=== PATIENT | male | born 1975 | race Caucasian/White ===

== ENCOUNTER 2024-06-24 10:22 | Emergency (ER) | payer SELFPAY ==
[2024-06-24] VITALS (8 sets, daily range): BP systolic 108–132; BP diastolic 67–96; PULSE 72–88; RESP 14–21; TEMP 36.9; O2SAT 96–99; BMI 34.7
--- NOTE | 2024-06-24 10:13 | ECG_ITS ---
APPROVED REPORT Exam: Resting ECG HR:76 bpm ECG Measurements Heart Rate 76 AXES LA 146 P 51 QRSd 96 QRS 6 QT 380 T 72 QTc 411 Conclusion SINUS RHYTHM NONSPECIFIC ST & T-WAVE ABNORMALITY No STEMI Electronically signed by : COREY MCDONOUGH, 06/25/2024 03:58:41
--- NOTE | 2024-06-24 10:34 | XR_ITS ---
PROCEDURE INFORMATION: Exam: XR Chest Exam date and time: 06/24/2024 10:32 AM Age: 49 years old Clinical indication: Pain; Other: Cp; Additional info: Cp sternal TECHNIQUE: Imaging protocol: Radiologic exam of the chest. Views: 2 views. COMPARISON: No relevant prior studies available. FINDINGS: Lungs: Unremarkable. No consolidation. Pleural spaces: Unremarkable. No pleural effusion. No pneumothorax. Heart/Mediastinum: Unremarkable. No cardiomegaly. Bones/joints: Unremarkable. IMPRESSION: No acute findings.
--- NOTE | 2024-06-24 10:36 | ED_ITS ---
Discharge Plan Disposition Chief Complaint: Chest Pain Referrals Follow up/Referrals: Provider,MD Kassy [Primary Care Provider] - See instructions Umair Sanford MD [Staff Physician] - See instructions Activity Restrictions/Add. Instructions Additional Instructions/Restrictions: At this time it was felt you are safe to be discharged home. If new or worsening symptoms please do not hesitate to return the emergency department. It may be worthwhile for you to get omeprazole [id number] and take it as the package directs for 1 week to see if it modifies your chest pain. Otherwise call and schedule an appointment with Dr. Sanford for continued evaluation as soon as you are able. Clinical Impressions Clinical Impression: Chest pain Print Language Print Language: Haitian Discharge ED Provider: Jourdan Luz General Chief Complaint: Chest Pain Stated Complaint: CP Time Seen by Provider: 06/24/24 10:26 Mode of Arrival: Ambulatory Source of Information: Patient and Spouse Description of Symptoms (Recalled from ER Triage Doc. by RN): pt has been having mid sternal chest spasms for 2 weeks now non radiating, nothing seems to make it better or worse however patient notes maybe tums did help, pt denies any dizziness/ nausea/ syncope/ soa. pt states any kind of mvmt tends to aggravate it but. pt takes no meds and has no pcp History of Present Illness HPI narrative: Patient is a 49-year-old male with no chronic comorbidities presents emergency department for evaluation of chest pain. Onset was subacute, 2 weeks, substernal, paroxysmal, intermittent. There is not seem to be any inciting factors however he did not have any symptoms yesterday and had taken Tums. No trauma. It is worse with cough, sneeze. No abdominal pain. No other acute complaints at this time. Please note that above description of symptoms, in this electronic medical record under categorization of recalled from ER triage doctor by RN are reflective of an initial nursing assessment, however, is not reflective of my full history and physical exam that was personally taken and clarified. Consequentially, this preceding description of symptoms, which may include the patient's categorized chief complaint in the EMR, do not reflect my personal clinical impression, and the ultimate description of history of present illness and patient stated complaints should be deferred to this section of the note. Unless stated otherwise or congruent with this section of the note, additional signs, symptoms, or incongruence should be interpreted as inaccurate with my clinical impression. Related Data Allergies Allergy/AdvReac Type Severity Reaction Status Date / Time No Known Allergies Allergy Verified 06/24/24 10:34 [facility] Disclaimer: The information contained in this section may have been updated after the patient was seen, as this information can be updated by other users. Social History Smoking Status: Never smoker alcohol intake: never current occupational status: other Travel in the last 8 weeks: None ROS Obtained: Yes Systems reviewed as appropriate & no additional complaints except as documented Physical Exam General General appearance: alert and in no apparent distress Head Head exam: atraumatic and normocephalic Eye Eye exam: Present PERRL and EOMI ENT ENT exam: Present mucous membranes moist Neck Neck exam: Present normal inspection Chest Chest inspection: Present normal inspection and symmetric chest wall rise; Absent tenderness Respiratory Respiratory exam: Present normal lung sounds bilaterally; Absent respiratory distress Cardiovascular Cardiovascular exam: Present regular rate and normal rhythm Abdominal Exam Abdominal exam: Present soft; Absent tenderness Extremities Exam Extremities exam: Present normal inspection Neurological Exam Neurological exam: Present alert Psychiatric Psychiatric exam: Present normal affect Skin Skin exam: Present warm and dry HEART Score HEART Score HEART Score assessment performed?: Yes History (anamnesis): Slightly suspicious ECG: Non-specific disturbance Age: 45-65 years Risk factors: No known risk factors Troponin: </= normal limit HEART Score: 2 Critical Care Critical Care Time Critical Care Time: No Medical Decision Making Fito Inquiry Pt receiving controlled substance: No Vital Signs Vital Signs: 06/24/24 10:27 06/24/24 10:33 06/24/24 11:16 Temperature 98.5 F Temperature Source Oral Pulse Rate 80 88 Pulse Rate [Left Radial] 77 Respiratory Rate 20 17 Blood Pressure 131/96 H Blood Pressure [Right Arm] 132/96 H Blood Pressure Mean [Right Arm] 108 02 Sat by Pulse Oximetry 99 98 Oxygen Delivery Method Room Air 06/24/24 11:30 06/24/24 12:00 06/24/24 12:30 Temperature Temperature Source Pulse Rate 80 76 87 Pulse Rate [Left Radial] Respiratory Rate 19 14 21 Blood Pressure 113/67 115/74 108/72 L Blood Pressure [Right Arm] Blood Pressure Mean [Right Arm] 02 Sat by Pulse Oximetry 98 96 97 Oxygen Delivery Method Room Air Room Air Room Air 06/24/24 13:00 Temperature Temperature Source Pulse Rate 72 Pulse Rate [Left Radial] Respiratory Rate 17 Blood Pressure 111/73 Blood Pressure [Right Arm] Blood Pressure Mean [Right Arm] 02 Sat by Pulse Oximetry 97 Oxygen Delivery Method Room Air Lab Data Labs: Lab Results 06/24/24 10:24: WBC 11.7 H, RBC 5.18, Hgb 15.7, Hct 46.0, MCV 88.8, MCH 30.3, MCHC 34.1, RDW 12.4, Plt Count 251, MPV 10.7 H, Neut % (Auto) 67.5, Lymph % (Auto) 23.1, [place] % (Auto) 7.1, Eos % (Auto) 1.4, Baso % (Auto) 0.6, Neut # (Auto) 7.9 H, Lymph # (Auto) 2.7, [place] # (Auto) 0.8, Eos # (Auto) 0.2, Baso # (Auto) 0.1, D-Dimer 0.36, Sodium 139, Potassium 4.5, Chloride 103, Carbon Dioxide 26, Anion Gap 14.5, BUN 19, Creatinine 1.10, Estimated Creat Clear 152, Estimated GFR 72, Est GFR ( Amer) 87, Glucose 105 H, Calcium 9.0, Total Bilirubin 0.7, AST 32, ALT 46, Alkaline Phosphatase 100, Troponin I < 0.01, Total Protein 7.6, Albumin 4.5, Globulin 3.1, Albumin/Globulin Ratio 1.5 06/24/24 12:23: Troponin I < 0.01, Lipase 39 06/24/24 10:24 06/24/24 10:24 Response Orders (Tests/Meds): ED MEDICATIONS Discontinued Medications Generic Name Dose Route Start Last Admin Trade Name Shahramq PRN Reason Stop Dose Admin Acetaminophen 1,000 mg 06/24/24 10:34 06/24/24 10:44 Acetaminophen 500mg Tab PO 06/24/24 10:35 1,000 mg ONCE ONE Administration Aspirin 324 mg 06/24/24 10:34 06/24/24 10:44 Aspirin 81mg Chewable Tablet PO 06/24/24 10:35 324 mg ONCE ONE Administration Belladonna Alkaloids 60 ml 06/24/24 10:34 06/24/24 10:44 Belladonna Alkaloids 60 Ml Ml PO 06/24/24 10:35 60 ml ONCE ONE Administration Methocarbamol 1,000 mg 06/24/24 10:34 06/24/24 10:43 Methocarbamol 500mg Tablet PO 06/24/24 10:35 1,000 mg ONCE ONE Administration ORDERS Category Date Time Status CXR 2 view (NOT portable) [XR chest 2V] Stat Exams 06/24/24 10:34 Completed CBC w/Auto Diff [Complete Blood Count Auto Diff] Stat Lab 06/24/24 10:24 Completed CMP [Comprehensive Metabolic Panel] Stat Lab 06/24/24 10:24 Completed D-Dimer Stat Lab 06/24/24 10:24 Completed Lipase Stat Lab 06/24/24 12:23 Completed Trop I [Troponin I] Stat Lab 06/24/24 10:24 Completed Troponin I Q3H Lab 06/24/24 12:23 Completed Troponin I Q3H Lab 06/24/24 16:45 Ordered ECG Data Tracing #1: ECG Narrative: Independently interpreted by me rate 76, rhythm is regular, axis is normal, no ST elevation in anatomical contiguous leads, QTc 411. MDM Narrative Medical Decision Narrative: In summary patient is a 49-year-old male past medical history described above presents emergency department for evaluation of chest pain. Patient is hemodynamically stable nontoxic-appearing upon arrival, afebrile. Differential diagnosis includes ACS, GERD, costochondritis, pulmonary embolism, among others. Workup will be conducted with hematologic labs, two-view chest x-ray, EKG, serial troponins. Initial inventions include aspirin, multimodal pain control. Initial workup reviewed by me, hematologic labs are nonactionable no significant leukocytosis no anemia no EWELINA or critical electrolyte abnormality. Initial troponin undetectably low. The patient was placed in observation status at 11:30 AM. Medical necessity for observational status is serial troponins. The patient was provided serial reevaluations and cardiac monitoring while awaiting results. Results of testing during observation remarkable for serially undetectably low troponins. Chest x-ray informally interpreted by me no acute large lobar opacities or pneumothorax. Formal read shows no acute findings. Because of this I feel the patient is appropriate for outpatient management at this time will be referred to Dr. Sanford for continued evaluation. Total time in observation 1 hour and 48 minutes.
[2024-06-24 10:41] LABS: Basophils # 0.1 K/mm3 (0-0.2); Basophils % 0.6 % (0.1-2.0); Eosinophils # 0.2 K/mm3 (0.0-0.4); Eosinophils % 1.4 % (0.1-12.0); Hemoglobin 15.7 g/dL (14.1-18.0); Lymphocytes # 2.7 K/mm3 (0.7-4.5); Lymphocytes % 23.1 % (10-50); Mean Corpuscular HGB Conc 34.1 g/dL (31.8-35.4); Mean Corpuscular Hemoglobin 30.3 pg (27.0-31.2); Mean Corpuscular Volume 88.8 fl (80-94); Mean Platelet Volume 10.7 fl (7.4-10.4); Monocytes # 0.8 K/mm3 (0.1-1.0); Monocytes % 7.1 % (1.7-9.3); Neutrophils # 7.9 K/mm3 (1.8-7.8); Neutrophils % 67.5 % (37.0-80.0); Platelet Count 251 K/mm3 (142-424); Red Blood Count 5.18 M/mm3 (4.60-6.20); Red Cell Distribution Width 12.4 % (11.5-17.5); White Blood Count 11.7 K/mm3 (4.8-10.8)
[2024-06-24] MEDS: METHOCARBAMOL 500MG TABLET 1000 MG PO (10:43)
[2024-06-24] MEDS: BELLADONNA ALKALOIDS 60 ML ML PO (10:44)
[2024-06-24] MEDS: ASPIRIN 81MG CHEWABLE TABLET 324 MG PO (10:44)
[2024-06-24] MEDS: ACETAMINOPHEN 500MG TAB 1000 MG PO (10:44)
[2024-06-24 10:48] LABS: Alanine Aminotransferase 46 U/L (12-78); Albumin Level 4.5 g/dl (3.5-5.0); Albumin/Globulin Ratio 1.5 (1.1-1.8); Alkaline Phosphatase 100 U/L (38-126); Anion Gap 14.5 mEq/L (5-15); Aspartate Amino Transferase 32 U/L (17-59); Bilirubin,Total 0.7 mg/dl (0.2-1.3); Blood Urea Nitrogen 19 mg/dl (9-20); Carbon Dioxide 26 mmol/L (22.0-30.0); Chloride 103 mmol/L (98-107); Creatinine Clearance Estimated 152 mL/min (50-200); Estimated Glomerular Filt Rate 72 ml/min (>60); GFR (African American) 87 ML/MIN (>60); Globulin 3.1 g/dL (1.3-3.2); Glucose 105 mg/dl (74-100); Potassium 4.5 mmoL/L (3.5-5.1); Sodium 139 mmol/L (136-145); Total Protein,Serum 7.6 g/dl (6.3-8.2)
[2024-06-24 10:53] LABS: D-Dimer 0.36 ug/mL (0.0-0.5)
[2024-06-24 11:02] LABS: Troponin I < 0.01 ng/ml (0.00-0.034)
[2024-06-24 12:59] LABS: Troponin I < 0.01 ng/ml (0.00-0.034)
[2024-06-24 13:14] LABS: Lipase 39 U/L (23-300)
== END 2024-06-24 13:27 | disposition home or self-care (01) ==
PROVIDERS: Emergency Provider Emergency Medicine
DX: R07.9 Chest pain, unspecified (principal)
CPT/HCPCS: 71046; 80053; 83690; 84484; 85025; 85378; 93005; 99284

== ENCOUNTER 2024-07-12 09:48 | Emergency (ER) | payer SELFPAY ==
--- NOTE | 2024-07-12 09:51 | ECG_ITS ---
APPROVED REPORT Exam: Resting ECG HR:77 bpm ECG Measurements Heart Rate 77 AXES KS 134 P 60 QRSd 104 QRS 7 QT 387 T 31 QTc 418 Conclusion Sinus rhythm, sinus arrhythmia Electronically signed by : CALVIN TELLO, 07/12/2024 15:30:02
--- NOTE | 2024-07-12 09:55 | XR_ITS ---
FINAL REPORT CLINICAL HISTORY: chest pain, SOA COMPARISON: None FINDINGS: PA and lateral views of the chest are obtained. There is no prior exam for comparison. The cardiac and mediastinal silhouettes are within normal limits. The lungs are clear. There is no pleural effusion, pneumothorax, or acute osseous abnormality. IMPRESSION: No radiographic evidence of acute cardiac or pulmonary disease. Reviewed, Interpreted and Dictated by Tonya Cruz MD Transcribed by Miladis Ellis Authenticated and [facility]
[2024-07-12 10:00] VITALS: BP 130/87
--- NOTE | 2024-07-12 10:09 | ED_ITS ---
Discharge Plan Disposition Patient Disposition: Home, Self-Care Chief Complaint: Chest Pain Referrals Follow up/Referrals: Provider,Referral, MD [Primary Care Provider] - See instructions Activity Restrictions/Add. Instructions Additional Instructions/Restrictions: Follow-up with your family doctor regarding this visit to the emergency department with 48 hours to establish care for this visit. Take Tylenol 1000 mg every 6 hours (4 times daily) and ibuprofen 400 mg every 6 hours (4 times daily) as needed with food and water to prevent GI upset and kidney damage. Clinical Impressions Clinical Impression: Chest pain Print Language Print Language: South African Discharge ED Provider: Calos Kent HPI General Chief Complaint: Chest Pain Stated Complaint: Chest Pain Time Seen by Provider: 07/12/24 10:00 History of Present Illness HPI narrative: Please note that above description of symptoms, in this electronic medical record under categorization of recalled from ER triage doctor by RN are reflective of an initial nursing assessment, however, is not reflective of my full history and physical exam that was personally taken and clarified. Consequentially, this preceding description of symptoms, which may include the patient's categorized chief complaint in the EMR, do not reflect my personal clinical impression, and the ultimate description of history of present illness and patient stated complaints should be deferred to this section of the note. Unless stated otherwise or congruent with this section of the note, additional signs, symptoms, or incongruence should be interpreted as inaccurate with my clinical impression. Related Data Allergies Allergy/AdvReac Type Severity Reaction Status Date / Time No Known Allergies Allergy Verified 06/24/24 10:34 [facility] Disclaimer: The information contained in this section may have been updated after the patient was seen, as this information can be updated by other users. Social History (Updated 06/24/24 @ 13:19 by Jourdan Luz MD) Smoking Status: Never smoker alcohol intake: never current occupational status: other Travel in the last 8 weeks: None Have you lived/traveled outside [place] in past 30 days?: No Contact w/someone who lives/traveled outside US past 30 days?: No Exposure to someone with infectious disease in past 14 days?: No Do you have a fever (greater than 100.4 F or 38 C)?: No Have you tested positive for COVID-19: No Exposed to someone with COVID-19 in past 14 days?: No Do you have a sore throat?: No Do you have a cough?: No Do you have any weakness?: No Do you have any diarrhea?: No Are you experiencing any unusual bleeding?: No Do you have any muscle aches/pain?: No Do you have any abdominal pain?: No Are you experiencing loss of taste or smell?: No ROS Obtained: Yes All systems reviewed & no additional complaints except as documented Physical Exam General General appearance: alert Neck Neck exam: Present trachea midline Chest Chest inspection: Present normal inspection and symmetric chest wall rise Respiratory Respiratory exam: Present normal lung sounds bilaterally; Absent respiratory distress, wheezes, stridor, accessory muscle use or prolonged expiratory phase Cardiovascular Cardiovascular exam: Present regular rate, normal rhythm and other (Pulses equal and symmetric in upper and lower extremities) Extremities Exam Extremities exam: Absent edema Neurological Exam Neurological exam: Present alert, oriented X3 and CN II-XII intact Skin Skin exam: Present warm and dry; Absent cyanosis, diaphoresis or pallor HEART Score HEART Score HEART Score assessment performed?: Yes HEART Score: 1 Critical Care Critical Care Time Critical Care Time: No Medical Decision Making Medical Records Medical records reviewed: Yes I reviewed the patient's medical records. Fito Inquiry Pt receiving controlled substance: No Fito was queried for this patient: No Vital Signs Vital Signs: 07/12/24 10:00 07/12/24 10:12 07/12/24 10:30 Temperature 97.8 F Temperature Source Oral Pulse Rate 85 Pulse Rate [Right] 79 Respiratory Rate 18 12 Blood Pressure 130/87 133/95 H Blood Pressure [Right Arm] 137/80 Blood Pressure Mean 101 Blood Pressure Mean [Right Arm] 99 Blood Pressure Source [Right Arm] Automatic Cuff 02 Sat by Pulse Oximetry 99 94 L Oxygen Delivery Method Room Air 07/12/24 11:01 07/12/24 11:31 Temperature Temperature Source Pulse Rate 84 85 Pulse Rate [Right] Respiratory Rate 21 19 Blood Pressure 145/116 H 121/89 Blood Pressure [Right Arm] Blood Pressure Mean Blood Pressure Mean [Right Arm] Blood Pressure Source [Right Arm] 02 Sat by Pulse Oximetry 95 93 L Oxygen Delivery Method Lab Data Labs: Lab Results 07/12/24 10:05: WBC 11.8 H, RBC 5.20, Hgb 15.8, Hct 45.8, MCV 88.1, MCH 30.4, MCHC 34.5, RDW 12.6, Plt Count 236, MPV 10.7 H, Neut % (Auto) 69.4, Lymph % (Auto) 21.8, [place] % (Auto) 5.9, Eos % (Auto) 1.9, Baso % (Auto) 0.7, Neut # (Auto) 8.2 H, Lymph # (Auto) 2.6, [place] # (Auto) 0.7, Eos # (Auto) 0.2, Baso # (Auto) 0.1, Sodium 139, Potassium 4.4, Chloride 103, Carbon Dioxide 28, Anion Gap 12.4, BUN 17, Creatinine 1.00, Estimated GFR 80, Est GFR ( Amer) 97, Glucose 113 H, Calcium 9.5, Total Bilirubin 0.7, AST 38, ALT 53, Alkaline Phosphatase 90, Troponin I < 0.01, NT-Pro-B Natriuret Pep < 20.0, Total Protein 7.3, Albumin 4.4, Globulin 2.9, Albumin/Globulin Ratio 1.5, Lipase 43 07/12/24 10:05 07/12/24 10:05 Response Orders (Tests/Meds): ED MEDICATIONS Discontinued Medications Generic Name Dose Route Start Last Admin Trade Name Freq PRN Reason Stop Dose Admin Ketorolac Tromethamine 15 mg 07/12/24 10:27 07/12/24 10:44 Ketorolac 30mg/Ml Vial IV 07/12/24 10:28 15 mg ONCE ONE Administration Lidocaine 1 each 07/12/24 10:27 07/12/24 10:44 Lidocaine 5% Transdermal Patch TD 07/12/24 10:28 1 each ONCE ONE Administration ORDERS Category Date Time Status CXR 2 view (NOT portable) [XR chest 2V] Stat Exams 07/12/24 09:55 Completed Complete Blood Count Auto Diff Stat Lab 07/12/24 10:05 Completed Comprehensive Metabolic Panel Stat Lab 07/12/24 10:05 Completed Lipase Stat Lab 07/12/24 10:05 Completed NT Pro Brain Natriuretic Pep. Stat Lab 07/12/24 10:05 Completed Troponin I Q3H Lab 07/12/24 10:05 Completed Troponin I Q3H Lab 07/12/24 13:00 Ordered MDM Narrative Medical Decision Narrative: This a 49-year-old male presenting with a month of chest pain. He states that he was seen a couple of weeks ago, workup was negative. States that it is point tenderness just left of sternum when he feels like he can push on it. Application of pressure does not make it any better or worse, it is made worse by coughing and sneezing and twisting. Not exertional, nonpositional. Antacid medication did not work, so came in for further evaluation because he feels he should be healed by now. History was obtained via conversation with patient and chart review. On arrival, patient hemodynamically stable, alert, oriented x4, appropriate, GCS 15, moving all extremities spontaneously, pupils equal and reactive to light. Full physical exam performed and significant for well- appearing male no acute distress. Very clinically well. Hemodynamically stable, afebrile, normotensive and nontachycardic. Lungs are clear anterior and posteriorly, cardiac exam without murmurs gallops or rubs, pulses equal symmetric in upper and lower extremities. Application of pressure without worsening of pain, but states that the point tenderness is just immediately adjacent to her sternum on the left and he is able to feel pressure, there when applying direct pressure with finger. Differential includes costochondritis, less likely be ACS, ME, pericarditis, pneumothorax, pneumonia, PE, among others. Patient was given Toradol and lidocaine patch for symptomatic management and correction of underlying abnormalities. Patient placed on continuous cardiac monitoring and continuous pulse ox with initial blood pressure 130/87, heart rate 79, saturation 93% on room air. Independent interpretation of EKG shows sinus rhythm 77 bpm with NM 134, QRS 104, QTc 418. No acute ischemic change. Workup independently interpreted and significant for nonactionable CBC or chemistry, troponin and BNP negative. Lipase negative.. On independent interpretation of imaging, no acute cardiopulmonary space disease on chest x-ray. See radiology read for full review of final results. Heart score 1. On reevaluation, patient feeling much better. Given patient presentation, workup, history, this most likely represents costochondritis. Because patient at baseline without signs or symptoms of clinical decompensation, deemed appropriate for discharge. Results were relayed to patient who voiced understanding and were agreeable to outpatient management and follow up. I discussed my clinical impression with patient and answered all questions. At this time, the evidence for any other entities in the differential is insufficient to warrant any further testing or ED observation. This was explained as well. Advisory was given that persistent or worsening symptoms require further evaluation. I confirmed the understanding of this discussion. Recommended he follow-up with his family doctor. Midwife Practitioner disclaimer Much of this encounter note is an electronic organic chemistry teacher spoken language to printed text. Electronic organic chemistry teacher of the spoken language may permit errors. Although I have reviewed the note, some errors may still exist.
[2024-07-12 10:12] VITALS: BP 137/80; PULSE 79; RESP 18; TEMP 36.6; O2SAT 99; BMI 34.0
[2024-07-12 10:16] LABS: Basophils # 0.1 K/mm3 (0-0.2); Basophils % 0.7 % (0.1-2.0); Eosinophils # 0.2 Kmm3 (0.0-0.4); Eosinophils % 1.9 % (0.1-12.0); Hematocrit 45.8 % (42.0-52.0); Hemoglobin 15.8 g/dL (14.1-18.0); Lymphocytes # 2.6 K/mm3 (0.7-4.5); Lymphocytes % 21.8 % (10-50); Mean Corpuscular HGB Conc 34.5 g/dL (31.8-35.4); Mean Corpuscular Hemoglobin 30.4 pg (27.0-31.2); Mean Corpuscular Volume 88.1 fl (80-94); Mean Platelet Volume 10.7 fl (7.4-10.4); Monocytes # 0.7 K/mm3 (0.1-1.0); Monocytes % 5.9 % (1.7-9.3); Neutrophils # 8.2 K/mm3 (1.8-7.8); Neutrophils % 69.4 % (37.0-80.0); Nucleated Red Blood Cells # 0 10^3/uL; Nucleated Red Blood Cells % 0 %; Platelet Count 236 K/mm3 (142-424); Red Cell Distribution Width 12.6 % (11.5-17.5); Red Cell Distribution Width-SD 40.4 fL; White Blood Count 11.8 K/mm3 (4.8-10.8)
[2024-07-12 10:26] LABS: Alanine Aminotransferase 53 U/L (12-78); Albumin Level 4.4 g/dl (3.5-5.0); Albumin/Globulin Ratio 1.5 (1.1-1.8); Alkaline Phosphatase 90 U/L (38-126); Anion Gap 12.4 mEq/L (5-15); Aspartate Amino Transferase 38 U/L (17-59); Bilirubin,Total 0.7 mg/dl (0.2-1.3); Blood Urea Nitrogen 17 mg/dl (9-20); Calcium 9.5 mg/dl (8.4-10.2); Carbon Dioxide 28 mmol/L (22.0-30.0); Chloride 103 mmol/L (98-107); Estimated Glomerular Filt Rate 80 ml/min (>60); GFR (African American) 97 ML/MIN (>60); Globulin 2.9 g/dL (1.3-3.2); Glucose 113 mg/dl (74-100); Lipase 43 U/L (23-300); Potassium 4.4 mmoL/L (3.5-5.1); Sodium 139 mmol/L (136-145); Total Protein,Serum 7.3 g/dl (6.3-8.2)
[2024-07-12 10:30] VITALS: BP 133/95; PULSE 85; RESP 12; O2SAT 94
[2024-07-12 10:38] LABS: NT Pro Brain Natriuretic Pep. < 20.0 pg/mL (0-125)
[2024-07-12 10:39] LABS: Troponin I < 0.01 ng/ml (0.00-0.034)
[2024-07-12] MEDS: LIDOCAINE 5% TRANSDERMAL PATCH 1 EACH TD (10:44)
[2024-07-12] MEDS: KETOROLAC 30MG/ML VIAL 15 MG IV (10:44)
[2024-07-12 11:01] VITALS: BP 145/116; PULSE 84; RESP 21; O2SAT 95
[2024-07-12 11:31] VITALS: BP 121/89; PULSE 85; RESP 19; O2SAT 93
--- NOTE | 2024-07-12 12:24 | PC.NURSE ---
Dr Kent at bedside
[2024-07-12 12:25] VITALS: BP 114/84; PULSE 77; RESP 16; TEMP 36.7; O2SAT 98
== END 2024-07-12 12:34 | disposition home or self-care (01) ==
PROVIDERS: Emergency Provider Emergency Medicine
DX: R07.89 Other chest pain (principal)
CPT/HCPCS: 71046; 80053; 83690; 83880; 84484; 85025; 93005; 96374; 99284; J1885

== ENCOUNTER 2024-09-23 10:36 | Emergency (ER) | payer SELFPAY ==
--- OUTSIDE RECORDS SUMMARY | 2024-08-27 11:45 | XMS_ITS | Continuity of Care Document ---
Author Organization [facility] Address [address] [place] [address] Phone Care Team Providers Care Application Support Manager Name Role Phone Rene MSN, [employer]ER, Sheila Unavailable Unavai lable Allergies, Adverse Reactions, Alerts Substance Reaction Status Criticality No Known Allergies Active No Inform ation Medications Medication Instructions Dosage Effective Dates (start - stop) Status Comments nitrofurantoin monohydrate/macrocrysta ls 100 mg capsule take 1 capsule by oral route every 12 hours with food 100 MG - Active Vitamin D3 25 mcg (1,000 unit) capsule - Active Procedures Procedure Date OFFICE/OUTPATIENT VISIT, EST OFFICE/OUTPATIENT VISIT, EST Advance Directives Directive Yes / No Effective Date File Name No Information Encounters Encounter Description Practice Location Reason(s) For Visit Diagnoses Date Provider OFFICE/OUTPAT IENT VISIT, [facility], [address] [place] [address], [facility], tel:[phone] [facility] [place] f/u labs (chief complaint)t elehealth (chief complaint) DysuriaHyperlipidemia, unspecifiedPrediabetes 5 Rene Sosa. [address], [place], [id number] , [place]. tel:[phone] [facility], [facility] [place], [place], [facility], [place] tel:[phone] [facility] [place] Depression screening (chief complaint)P rapare (chief complaint)E stablish Care (chief complaint) Extreme povertyEncounter for screening for depressionEncounter for screening for diseases of the blood and blood-forming organs and certain disorders involving the immune mechanismEncounter for screening for other disorderBody mass index [BMI] 36.0-36.9, adultElevated BP reading w/o diagnosis of HTNUnspecified injury of lower back, initial encounter Rene Sosa. [address] [place], [id number] , . tel:[phone] Family History Family Member Type Diagnosis Age At Onset Mother Problem Cancer, breast Brother Problem Alive and well Brother Problem Alive and well Brother Problem Alive and well Paternal grandmother Problem Hep C, Respiratory F ailure Brother Problem (finding) Son Problem Alive and well Daughter Problem Alive and well Paternal grandfather Problem DROWNING Maternal grandfather Problem (finding) Mother Problem Alive and well Son Problem Alive and well Father Problem FIRE Mother Problem COPD Son Problem Alive and well Brother Problem Alive and well Son Problem Alive and well Maternal grandmother Problem (finding) Sister Problem Alive and well Immunizations Vaccine Date Status Comments SARS-COV-2 (COVID-19) vaccin e, mRNA, spike protein, LNP, bivalent booster, preservative free, 50 mcg/0.5 mL or 25 mcg/0.25 mL dose (Moderna) refused Source: New I mmunization Record Influenza virus vaccine, trivalent (IIV3), split virus, preservative free, 0.5 mL dosage, for intramuscular use refused Source: New Immuni zation Record Payers Payer name Insurance type Covered democrat ID Authoriza tion(s) [facility]ch- Covered Under [employer] CI [id number] H[facility]- Covered Under [employer] CI [id number] [facility] 100% Indigent [id number] Social History Type Description Quantity Date Captured Comments Alcohol Use Details Unknown Caffeine Use Details Unknown Tobacco Use Status No Information Smoking Status No Information Sex Male Sexual Orientation Straight or heterosexual Aug Gender Identity Male Chief Complaint And Reason For Visit From encounter dated '08/27/2024 15:45'. f/u labs (chief complaint). Description: Basilio is here today via telephone for f/u on recent labs. Overall ok w/ a few exceptions:LDL 111, Trigs 189WBC 12.7- reports having urinary symptoms still, frequency and burningwill send [id number] was 5.7Encouraged to have a low fat diet, limit simple carbs and increase vegetables in diet as well as exercise. He voiced understanding I will see him backin 1 month f/u on BP and sooner if need be- r/t UTI symptoms. telehealth (chief complaint). Description: Patient and/or Guardian has verified being in the [facility] and has given verbal consent to be treated via telehealth/telephone consultation. Today's visit is being completed via; Telephone.Patient and/or Guardian provided full consent to use this technology. Patient and/or guardian was advised of the limitations of a video/phone visit via telehealthProvider completed this visit within his/her office. Patient's location during this visit- Patients workplace. Plan Of Treatment Date Type Action Status Goal Lipid panel. Due on due Goal CMP. Due on due Goal Vitamin D. Due on due Goal Tobacco screening. Due on due Goal Generalized Anxi ety Disorder - 7 (JEFE-7). Due on due Goal Drug Abuse Scree slick Test (DAST-10). Due on due Goal Follow up Plan f or abnormal BMI (Less than 18.5, greater than 25). Due on due Goal Diabetes screening. Due on due Goal Obtain Height, Weight, and B [place]. Due on due Goal Vitamin B12. Due on due Goal Tobacco Use Cess ation Counseling. Due on due Goal Tobacco Use Screening. Due o n due Goal Depression screening. Due on due Goal HIV screen due Goal Unhealthy drug use screening due Goal CBC. Due on due Goal Hepatitis C Screening due Goal Tobacco screening. Due on due Goal HIV screen due Goal Lipid panel. Due on due Goal Obtain Height, Weight, and B [place]. Due on due Goal Vitamin D. Due on due Goal Unhealthy drug use screening due Goal Tobacco Use Screening. Due o n due Goal Vitamin B12. Due on due Goal Depression screening. Due on due Goal Hepatitis C Screening due Goal Diabetes screening. Due on due Goal Generalized Anxi ety Disorder - 7 (JEFE-7). Due on due Goal CMP. Due on due Goal CBC. Due on due Goal Follow up Plan f or abnormal BMI (Less than 18.5, greater than 25). Due on due Goal Lifestyle education regardin g diet completed Appointment Basilio Portillo/Luz BP CANDACE OKED Appointment Basilio Portillo/Luz BOOKJulio C D History Of Present Illness Encounter Date Complaint History Of Prese nt Illness telehealth Patient and/or G uardian has verified being in the [facility] and has given verbal consent to be treated via telehealth/telephone consultation. Today's visit is being completed via; Telephone.Patient and/or Guardian provided full consent to use this technology. Patient and/or guardian was advised of the limitations of a video/phone visit via telehealthProvider completed this visit within his/her office. Patient's location during this visit- Patients workplace. f/u labs Basilio is here today via telephone for f/u on recent labs. Overall ok w/ a few exceptions:LDL 111, Trigs 189WBC 12.7- reports having urinary symptoms still, frequency and burningwill send [id number] was 5.7Encouraged to have a low fat diet, limit simple carbs and increase vegetables in diet as well as exercise. He voiced understanding I will see him back in 1 month f/u on BP and sooner if need be- r/t UTI symptoms. Depression screening Depression screening completed 08/22/24. Pt scored 0, provider aware. -VAUGHN,JAGJIT Dillon Craranza complete d 08/22/24. -JAGJIT MENDES Establish Care Basilio is here today as a new patient to establish care. Pt has concerns about his prostate. After 2 days of riding on a skidstear, he reports feeling soreness in his tailbone and below his tailbone. Denies urinary urgency, difficulty w/ urination, denies penile discharge, denies incontinence or retention. Denies abdominal pain.He had a colonoscopy completed in June 2024 in [place], pt reports that it was normal- 2 polyps removed- repeat 10 years. Pt does not recall the name of the clinic but will call back into clinic once he gets home and can get his paperwork. Pt recently was seen at [facility] ER for discomfort in his chest/sternum. It would get worse when he coughed or sneezed. Xrays and labs were all normal. They diagnosed him with contusions in his chest from coughing and sneezing. Pt reports that he no longer has that pain/discomfort. Instructions Date Instruction Additional Infor molly Patient educated on the importance of maintaining glycemic control. Counseled on diet, exercise and other lifestyle factors that can impact glucose control. Instructed on the importance of taking all medications as prescribed. Patient aware of the importance of diabetic eye exams, dental check ups, foot exams and diabetic foot care. Patient verbalized understanding. Related to Prediabetes Low fat, low cholest darlene diet. Avoid fatty, fried, and greasy foods. Physical activity as tolerated. Counseled on risks of associated comorbidities, such as heart disease and stroke. Encouraged avoidance of tobacco products. Related to Hyperlipidemia, unspecified Avoid chocolate, caf feine, carbonation, or citrus. Take antibiotics until complete. Take all medications as prescribed. Drink plenty of clear fluids. Counseled on appropriate hygiene to reduce risk of future UTI's. Verbalized an understanding of all. Related to Dysuria Pain at [facility]- ems to be resolved todayWill check Prostrate via lab analysis Related to Unspecified injury of lower back, initial encounter Patient instructed o f the importance of taking medications as prescribed, following a low salt diet as well as getting physical activity as tolerated. Patient advised to keep BP log daily checking each morning and before bed. Patient to call the clinic if systolic blood pressure is greater than 150 and/or diastolic blood pressure is staying greater than 90. Related to Elevated BP reading w/o diagnosis of HTN Giving encouragement to exercise Related to Body mass index [BMI] 36.0-36.9, adult Lifestyle education regarding di et Related to Body mass index [BMI] 36.0-36.9, adult Assessments Type Assessment Date assessment Dysuria assessment Hyperlipidemia, unspecified assessment Prediabetes Mental Status Date Cognitive Assessment Orientation - [place] ed to time, place, person, situation.
[2024-09-23 10:44] VITALS: BP 123/87; PULSE 64; RESP 15; TEMP 36.9; O2SAT 99; BMI 34.7
--- NOTE | 2024-09-23 10:57 | HMH.EDGENADL ---
Discharge Plan Disposition Patient Disposition: Home, Self-Care Condition: Good Prescriptions Prescriptions: New triamcinolone acetonide 0.1 % cream 1 applic topical BID PRN (Reason: itching) Qty: 80 0RF Referrals Follow up/Referrals: Provider,Referral, MD [Primary Care Provider, Medical] - See instructions Activity Restrictions/Add. Instructions Additional Instructions/Restrictions: You were evaluated in the emergency department today. As we discussed, poison mae dermatitis can return with rebound symptoms, for which we usually recommend a prolonged oral steroid taper. Since you elected not to do this today, I am prescribing a steroid cream to you. 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 Follow-up closely with your primary care provider. Return to the emergency department for new or worsening symptoms. Clinical Impressions Clinical Impression: Allergic dermatitis due to poison mae Stand Alone Forms Stand Alone Forms: Work/School Release Instructions Patient Instructions: DI for Contact Dermatitis, DI for Poison Mae Allergy Print Language Print Language: Syrian Discharge ED Provider: Cait Cao General Adult HPI General Stated complaint: poison mae on body Time Seen by Provider: 09/23/24 10:41 History of Present Illness HPI narrative: This patient is a 49-year-old male with history of prediabetes presenting to the emergency department for evaluation of concern for poison mae. Patient reports he was cleaning out bushes and developed a subsequent rash, worse on his forearms, his lower abdomen, and in his groin and privates. He states that it is very itchy and he knows it is poison mae because of known exposure and history of contact dermatitis related to poison mae in the past. No other symptoms such as fevers or systemic symptoms noted. He is requesting a steroid shot, stating that this is what he is received anytime he is at poison mae before. Related Data Previous Rx's ?Medication ?Instructions ?Recorded triamcinolone acetonide 0.1 % 1 applic topical BID PRN itching 09/23/24 topical cream #80 grams Allergies Allergy/AdvReac Type Severity Reaction Status Date / Time No Known Allergies Allergy Verified 06/24/24 10:34 [facility] Disclaimer: The information contained in this section may have been updated after the patient was seen, as this information can be updated by other users. Social History Smoking Status: Never smoker alcohol intake: never current occupational status: other Travel in the last 8 weeks?: None Have you lived/traveled outside [place] in past 30 days?: No Contact w/someone who lives/traveled outside US past 30 days?: No Exposure to someone with infectious disease in past 14 days?: No Do you have a fever (greater than 100.4 F or 38 C)?: No Have you tested positive for COVID-19?: No Exposed to someone with COVID-19 in past 14 days?: No Do you have a sore throat?: No Do you have a cough?: No Do you have any weakness?: No Do you have any diarrhea?: No Are you experiencing any unusual bleeding?: No Do you have any muscle aches/pain?: No Do you have any abdominal pain?: No Are you experiencing loss of taste or smell?: No ROS Obtained: Yes All systems reviewed & no additional complaints except as documented Physical Exam General General appearance: alert and in no apparent distress Head Head exam: atraumatic and normocephalic Eye Eye exam: Present normal appearance, PERRL and EOMI ENT ENT exam: Present normal exam, normal oropharynx, mucous membranes moist and normal external ear exam Neck Neck exam: Present normal inspection, full ROM and trachea midline; Absent tenderness Chest Chest inspection: Present normal inspection and symmetric chest wall rise; Absent tenderness Respiratory Respiratory exam: Present normal lung sounds bilaterally; Absent respiratory distress, wheezes, stridor or accessory muscle use Cardiovascular Cardiovascular exam: Present regular rate and normal rhythm Abdominal Exam Abdominal exam: Present soft; Absent distention, tenderness or guarding Extremities Exam Extremities exam: Present normal inspection, full ROM and normal capillary refill; Absent tenderness or edema Back Exam Back exam: Present normal inspection and full ROM; Absent tenderness Neurological Exam Neurological exam: Present alert, oriented X3, CN II-XII intact and normal gait; Absent motor sensory deficit Psychiatric Psychiatric exam: Present normal affect and normal mood Skin Skin exam: Present warm, dry and rash (Scattered excoriated rash with fluid filled blisters consistent with contact dermatitis secondary to poison mae) Medical Decision Making Medical Records Medical records reviewed: Yes I reviewed the patient's medical records. Screening: Per USPSTF and CDC recommendations, given the prevalence of disease in our region, it is our hospital?s policy to screen for HIV and viral Hepatitis for all patients aged 18 and over and those with ongoing risk factors. Fito Inquiry Pt receiving controlled substance: No Lab Data Lab results reviewed: Yes I reviewed the patient's lab results. Orders (Tests/Meds): ED MEDICATIONS Discontinued Medications Generic Name Dose Route Start Last Admin Trade Name Calos PRN Reason Stop Dose Admin Dexamethasone Sodium Phosphate 10 mg 09/23/24 10:51 Dexamethasone 4mg/Ml 1ml Vial IM 09/23/24 10:52 ONCE ONE Medical Decision Narrative: In summary, this patient is a 49-year-old male presenting to the Emergency Department for evaluation of poison mae. Differential diagnoses considered include but are not limited to contact dermatitis, allergic reaction, anaphylaxis, tinea. Ruling out the most morbid conditions drove assessment. On exam, the patient is well-appearing. He has fluid-filled blisters and excoriations consistent with contact dermatitis, likely in the setting of poison mae given his recent exposure. He is otherwise afebrile, nontoxic-appearing, no other concerns or complaints and otherwise well-appearing on exam. Given I feel he likely has poison mae based on current clinical presentation and history, will treat with steroids. He refused oral steroid taper and instead wants a steroid shot, as he states that is what he is always got in the past. Given this, he was given IM dexamethasone. Also prescribed topical triamcinolone for any sort of residual symptoms/itching. He was given instructions for close PCP follow-up and strict return precautions. He was discharged after all questions were answered with instructions for supportive care Critical Care Critical Care Time Critical Care Time: No
[2024-09-23 11:01] VITALS: BP 123/87; PULSE 64; RESP 15; TEMP 36.9; O2SAT 99
[2024-09-23] MEDS: DEXAMETHASONE 4MG/ML 1ML VIAL 10 MG IM (11:02)
[2024-09-23 11:04] VITALS: BP 123/87; PULSE 64; RESP 15; TEMP 36.9; O2SAT 99
== END 2024-09-23 11:10 | disposition home or self-care (01) ==
PROVIDERS: Emergency Provider Emergency Medicine
DX: L23.7 Allergic contact dermatitis due to plants, except food (principal)
CPT/HCPCS: 96372; 99283; J1100

== ENCOUNTER 2025-02-09 11:58 | Emergency (ER) | payer MEDICAID, SELFPAY ==
--- OUTSIDE RECORDS SUMMARY | 2025-01-17 05:10 | XMS_ITS | Continuity of Care Document ---
Author Organization [facility] Address [address] [place] [address] Phone Care Team Providers Care Waiter/Waitress Informal Name Role Phone Rene MSN, CERTIFIED MASTER LOCKSMITH, Sheila Unavailable Unavai lable Allergies, Adverse Reactions, Alerts Substance Reaction Status Criticality No Known Allergies Active No Inform ation Medications Medication Instructions Dosage Effective Dates (start - stop) Status Comments Vitamin D3 25 mcg (1,000 unit) capsule - Active Advance Directives Directive Yes / No Effective Date File Name No Information Encounters Encounter Description Practice Location Reason(s) For Visit Diagnoses Date Provider [facility], [address] [place] [address], [facility], tel:[phone] [facility] [place] No Information 0 5 Rene Sosa. [address] [place], [place], [address] [place] [address] , . tel: [phone] [facility], [address] [place] [address], [facility], tel:[phone] [facility] [place] fasting labs (chief complaint) Body mass index [BMI] 33.0-33.9, adultDorsalgia 4 5 López Sheila. [address] [place], [place], [id number] , . tel: [phone] [facility], [address] [place] [address], [facility], tel:[phone] [facility] [place] Follow up on BP (chief complaint) Hyperlipidemia, unspecifiedPrediabetesBo dy mass index [BMI] 35.0-35.9, adultEssential (primary) hypertension 5 Rene Sosa. [address] [place], [place], [id number] , . tel: [phone] [facility], [address] [place] [address], [facility], [phone] [facility] [place] f/u labs (chief complaint)t [facility] (chief complaint) DysuriaHyperlipidemia, unspecifiedPrediabetes 5 Rene Chouissa. [address] [place], [place], [id number] , . tel: [phone] [facility], [address] [place] [address], [facility], [phone] [facility] Depression screening (chief complaint)P rapare (chief complaint)E stablish Care (chief complaint) Extreme povertyEncounter for screening for depressionEncounter for screening for diseases of the blood and blood-forming organs and certain disorders involving the immune mechanismEncounter for screening for other disorderBody mass index [BMI] 36.0-36.9, adultElevated BP reading w/o diagnosis of HTNUnspecified injury of lower back, initial encounter 5 Rene Chouissa. [address] [place], [place], [id number] , . tel: [phone] Family History Family Member Type Diagnosis Age [...] Record Payers Payer name Insurance type Covered constitution party ID Shahnaz delgado(s) Hch- Covered Under Aguilar [id number] Hch- Covered Under [employer]ilar CI [id number] [facility] 100% Indigent [id number] Social History Type Description Quantity Date Captured Comments Alcohol Use Details Unknown Caffeine Use Details Unknown Tobacco Use Status No Information Smoking Status No Information Sex Male Sexual Orientation Straight or heterosexual Aug Gender Identity Male Chief Complaint And Reason For Visit No Information Plan Of Treatment Date Type Action Status Goal Lifestyle education regardin g diet completed Goal Urinalysis due Goal ECG. Due on due Goal Obtain blood Pressure. Due o n due Goal Diabetes screening. Due on due Goal Lipid panel. Due on due Goal HIV screen due Goal Generalized Anxi ety Disorder - 7 (JEFE-7). Due on due Goal Hepatitis C Screening due Goal Depression screening. Due on due Goal Tobacco screening. Due on due Goal Vitamin B12. Due on due Goal Unhealthy drug use screening due Goal Drug Abuse Scree slick Test (DAST-10). Due on due Goal CBC. Due on due Goal Follow up Plan f or abnormal BMI (Less than 18.5, greater than 25). Due on due Goal Obtain Height, Weight, and B CA. Due on due Goal Vitamin D. Due on due Goal Tobacco Use Screening. Due o n due Goal CMP. Due on due Goal Lifestyle education regardin g diet completed Goal Lipid panel. Due on due Goal [...] due Goal Obtain Height, Weight, and B CA. Due on due Goal Vitamin B12. Due on due Goal Tobacco Use Cessation Counse ling. Due on due Goal Tobacco Use Screening. Due o n due Goal Depression screening. Due on due Goal HIV screen due Goal Unhealthy drug use screening due Goal CBC. Due on due Goal Hepatitis C Screening due Goal Tobacco screening. Due on Ju due Goal HIV screen due Goal Lipid panel. Due on due Goal Obtain Height, Weight, and B CA. Due on due Goal Vitamin D. Due on due Goal Unhealthy drug use screening due Goal Tobacco Use Screening. Due o n due Goal Vitamin B12. Due on due Goal Depression screening. Due on due Goal Hepatitis C Screening due Goal Diabetes screening. Due on J due Goal Generalized Anxi ety Disorder - 7 (JEFE-7). Due on due Goal CMP. Due on due Goal CBC. Due on due Goal Follow up Plan f or abnormal BMI (Less than 18.5, greater than 25). Due on due Goal Lifestyle education regardin g diet completed Referral Ordered: MRI LUMBAR SPINE W/O & W/DYE Bilateral back Appointment date/timeframe: 1 Week ordered History Of Present Illness Encounter Date Complaint History Of Prese nt Illness fasting labs Basilio is here today for fasting lab collection.He also voice pain in his tailbone/coccyx area for about 8 months after operating a skid-steer.He denies actual injury, reports pain as an annoyance.Denies incontinence of stool/urineno saddle anesthesiaHe has tried conservative measures, stretching and exercising w/o improvement. would like to have imaging of his back. Follow up on BP Basilio is here today to follow up on bp.HTN:He was last seen in office 08/22/24 when BP was elevated. 129/92., states had ER visit last week and BP was 130/82. Went for poison nicky.Today BP remains elevated. He does not wish to start medication today, but will re-evaluate at next visit in Nov. He was to f/u in 2 weeks- he did have telehealth visit for Dysuria. These symptoms have cleared.HLD: LDL 111, Trigs 189reports has been eating healthy and exercising daily. Down 13 lbs from last visit.discussed rosuvastatin, but declines until after Nov to repeat labs.PreDM: 5.7Since last visit he has changes his diet, is exercising (running a mile) at least 5 days weekly telehealth Patient and/or G omararavind has verified being in the [facility] and has given verbal consent to be [...] urinary symptoms still, frequency and burningwill send [id number] was 5.7Encouraged to have a low fat diet, limit simple carbs and increase vegetables in diet as well as exercise. He voiced understanding I will see him back in 1 month f/u on BP and sooner if need be- r/t UTI symptoms. Depression screening Depression screening completed 08/22/24. Pt scored 0, provider aware. -JAGJIT MENDES Dillon Carranza complete d 08/22/24. -JAGJIT MENDES Establish Care [...] a colonoscopy completed in June 2024 in [place], pt reports that it was normal- 2 polyps removed- repeat 10 years. Pt does not recall the name of the clinic but will call back into clinic once he gets home and can get his paperwork. Pt recently was seen at [facility] ER for discomfort in his chest/sternum. It would get worse when he coughed or sneezed. Xrays and labs were all normal. They diagnosed him with contusions in his chest from coughing and sneezing. Pt reports that he no longer has that pain/discomfort. Instructions Date Instruction Additional Infor molly Patient instructed o n appropriate use of medications prescribed for back pain. Discussed conservative measures such as heat, ice, gentle strength stretching, and core muscle strengthening. Avoid heavy lifting, pulling, or tugging. Contact the clinic if any worsening or new symptoms related to back pain occur. Related to Dorsalgia Giving encouragement to exercise Related to Body mass index [BMI] 33.0-33.9, adult Lifestyle education regarding di et Related to Body mass index [BMI] 33.0-33.9, adult Patient instructed o f the importance of taking medications as prescribed, following a low salt diet as well as getting physical activity as tolerated. Patient advised to keep BP log daily checking each morning and before bed. Patient to call the clinic if systolic blood pressure is greater than 150 and/or diastolic blood pressure is staying greater than 90. Related to Essential (primary) hypertension Patient educated on the importance of maintaining [...] of tobacco products. Related to Hyperlipidemia, unspecified Giving encouragement to exercise Related to Body mass index [BMI] 35.0-35.9, adult Lifestyle education regarding di et Related to Body mass index [BMI] 35.0-35.9, adult Patient educated on the importance of maintaining [...] Related to Dysuria Pain at [facility] ems to be resolved todayWill check Prostrate [...] [BMI] 36.0-36.9, adult Assessments Type Assessment Date No Information
[2025-02-09 12:06] VITALS: BP 140/81; PULSE 79; RESP 16; TEMP 36.7; O2SAT 98; BMI 31.6
--- NOTE | 2025-02-09 12:17 | ED_ITS ---
<Statement entered by Chris Stein MD - 02/09/25 15:25> I was consulted by the VICENTE, and we discussed the complexity of the problems being addressed. I approve the treatment and management plan for this patient's care in the emergency department, thus performing a substantive portion of the medical decision making. Chris Stein MD Discharge Plan Disposition Patient Disposition: Home, Self-Care Condition: Fair Prescriptions Prescriptions: No Action triamcinolone acetonide 0.1 % cream 1 applic topical BID PRN (Reason: itching) Qty: 80 0RF Referrals Follow up/Referrals: Rodolfo Westbrook MD [Staff Physician, Urology] - See instructions Umair Metcalf DO [Staff Physician, Family Practice] - See instructions Activity Restrictions/Add. Instructions Additional Instructions/Restrictions: Today you were evaluated in the emergency department. Clinical Impressions Clinical Impression: Pain in penis Instructions Patient Instructions: Prostate-Specific Antigen (PSA) Test Print Language Print Language: Niuean Discharge ED Provider: Chris Stein General Adult HPI General Chief complaint: PAIN Stated complaint: pain in tail bone area Time Seen by Provider: 02/09/25 12:03 Mode of Arrival: Ambulatory Source of Information: Patient Description of Symptoms (Recalled from ER Triage Doc. by RN): pt presents to ED with c/o tailbone pain ongoing since may. pt reports that for this past week he has been experiencing pain in his groin. pt reports that he had some blood work done by pcp due to concern about his prostate. pt concered he may have nerve damage or something wrong with his prostate. History of Present Illness HPI narrative: patient is a 49-year-old male PMH prediabetes, hypertension, hyperlipidemia who presents to the ED for 5 to 6 months of tailbone pain and concern for prostate issue. Patient states he has seen his PCP for this and advises he had a normal PSA at that time. He states he has never been told that he had a prostate infection but is concerned due to the pain and burning. Patient states he also has burning at the tip of his penis. States he is not concerned for STDs. He has not been on any recent antibiotics Related Data Previous Rx's ?Medication ?Instructions ?Recorded triamcinolone acetonide 0.1 % 1 applic topical BID PRN itching 09/23/24 topical cream #80 grams Allergies Allergy/AdvReac Type Severity Reaction Status Date / Time No Known Allergies Allergy Verified 06/24/24 10:34 [facility] Disclaimer: The information contained in this section may have been updated after the patient was seen, as this information can be updated by other users. Social History Smoking Status: Never smoker alcohol intake: never current occupational status: other Travel in the last 8 weeks?: None Have you lived/traveled outside [place] in past 30 days?: No Contact w/someone who lives/traveled outside US past 30 days?: No Exposure to someone with infectious disease in past 14 days?: No Do you have a fever (greater than 100.4 F or 38 C)?: No Have you tested positive for COVID-19?: No Exposed to someone with COVID-19 in past 14 days?: No Do you have a sore throat?: No Do you have a cough?: No Do you have any weakness?: No Do you have any diarrhea?: No Are you experiencing any unusual bleeding?: No Do you have any muscle aches/pain?: No Do you have any abdominal pain?: No Are you experiencing loss of taste or smell?: No ROS Obtained: Yes Systems reviewed as appropriate & no additional complaints except as documented Physical Exam General General appearance: alert Head Head exam: normocephalic Eye Eye exam: Present PERRL Neck Neck exam: Present full ROM Chest Chest inspection: Present normal inspection Respiratory Respiratory exam: Present normal lung sounds bilaterally Cardiovascular Cardiovascular exam: Present regular rate Abdominal Exam Abdominal exam: Present soft; Absent tenderness Extremities Exam Extremities exam: Present full ROM Back Exam Back exam: Present full ROM Neurological Exam Neurological exam: Present alert and oriented X3 Psychiatric Psychiatric exam: Present normal affect Skin Skin exam: Present warm and dry Medical Decision Making Medical Records Screening: Per USPSTF and CDC recommendations, given the prevalence of disease in our region, it is our hospital?s policy to screen for HIV and viral Hepatitis for all patients aged 18 and over and those with ongoing risk factors. Fito Inquiry Pt receiving controlled substance: No Vital Signs: 02/09/25 12:06 02/09/25 13:49 Temperature 98.0 F 98.0 F Temperature Source Oral Pulse Rate 67 Pulse Rate [Left Radial] 79 Respiratory Rate 16 19 Blood Pressure 135/88 Blood Pressure [Right Arm] 140/81 Blood Pressure Mean [Right Arm] 100 02 Sat by Pulse Oximetry 98 Oxygen Delivery Method Room Air Lab Data Lab Results 02/09/25 12:20: WBC 8.6, RBC 5.07, Hgb 15.1, Hct 44.2, MCV 87.2, MCH 29.8, MCHC 34.2, RDW 13.1, Plt Count 210, MPV 11.0 H, Neut % (Auto) 67.8, Lymph % (Auto) 26.2, [place] % (Auto) 4.4, Eos % (Auto) 0.8, Baso % (Auto) 0.6, Neut # (Auto) 5.8, Lymph # (Auto) 2.3, [place] # (Auto) 0.4, Eos # (Auto) 0.1, Baso # (Auto) 0.1, S odium 135 L, Potassium 3.8, Chloride 104, Carbon Dioxide 21 L, Anion Gap 13.8, BUN 16, Creatinine 1.00, Estimated Creat Clear 152, Estimated GFR 80, Est GFR ( Amer) 97, Glucose 139 H, Calcium 9.3, Total Bilirubin 0.8, AST 33, ALT 41, Alkaline Phosphatase 85, Total Protein 7.5, Albumin 4.8, Globulin 2.7, Albumin/Globulin Ratio 1.8 02/09/25 12:27: Urine Color Yellow, Urine Appearance Clear, Urine pH 6.0, Ur Specific [place] 1.025, Urine Protein Negative, Urine Glucose (UA) Negative, Urine Ketones Negative, Urine Blood Negative, Urine Nitrate Negative, Urine Bilirubin Negative, Urine Urobilinogen 0.2, Ur Leukocyte Esterase Negative, Urine RBC None, Urine WBC Occasional, Ur Squamous Epith Cells Occasional, Urine Bacteria Trace, Urine Mucus Trace 02/09/25 12:20 02/09/25 12:20 Orders (Tests/Meds): ORDERS Category Date Time Status CBC w/Auto Diff [Complete Blood Count Auto Diff] Stat Lab 02/09/25 12:20 Completed CMP [Comprehensive Metabolic Panel] Stat Lab 02/09/25 12:20 Completed HIV Combo Routine Lab 02/09/25 12:20 Received Hepatitis C Ab Qual. W/ RFX Routine Lab 02/09/25 12:10 Received Urinalysis and Microscopic Stat Lab 02/09/25 12:27 Completed Urine Chlam/Gono/Trich ([facility]) Stat Lab 02/09/25 12:22 Received Medical Decision Narrative: In summary, patient is a 49-year-old male PMHx prediabetes, hypertension, hyperlipidemia who presents to the ED for 5 to 6 months of tailbone pain and concern for prostate issue. Patient states he has seen his PCP for this and advises he had a normal PSA at that time. He states he has never been told that he had a prostate infection but is concerned due to the pain and burning at the tip of his penis. Denies painful bowel movements. States he is not concerned for STDs. He has not been on any recent antibiotics. Patient is requesting MRI of his prostate. I explained to patient this is not a test that we are able to do in the ED and pain at the tip of the penis is most likely not related to the prostate. He Denies dysuria, flank pain. He denies any abdominal pain, suprapubic pain, flank pain. Upon initial evaluation patient is alert and oriented. He is hemodynamically stable. His physical exam is unremarkable. Abdomen soft and nontender. Differential diagnosis include UTI, STD, renal calculi, infectious process, among others. Discussed with patient we will proceed with labs and urinalysis to start workup. He is agreeable at this time. CBC unremarkable, no leukocytosis, stable H&H. CMP unremarkable. Urinalysis unremarkable for any infectious process. Nurse entered room and patient upset about not having his prostate MRI in the ED. RN attempted to explain that we do not perform MRIs of the prostate in the ED. RN attempted to have the attending talk to the patient but when the attending entered the room the patient had already left the ED. Critical Care Critical Care Time Critical Care Time: No
[2025-02-09 12:55] LABS: Hematocrit 44.2 % (42.0-52.0); Hemoglobin 15.1 g/dL (14.1-18.0); Immature Granulocytes % 0.2 %; Mean Corpuscular HGB Conc 34.2 g/dL (31.8-35.4); Mean Corpuscular Hemoglobin 29.8 pg (27.0-31.2); Mean Corpuscular Volume 87.2 fl (80-94); Nucleated Red Blood Cells % 0 %; Platelet Count 210 K/mm3 (142-424); Red Blood Count 5.07 M/mm3 (4.60-6.20); Red Cell Distribution Width-SD 41.3 fL; White Blood Count 8.6 K/mm3 (4.8-10.8)
[2025-02-09 13:07] LABS: Microscopic, Urine URINE MICROSCOPIC (MICROSCOPIC)
[2025-02-09 13:15] LABS: Bilirubin,Urine Negative (Negative); Color,Urine YELLOW (Yellow); Glucose,Urine (UA) Negative (Negative); Ketones,Urine Negative (Negative); Leukocyte Esterase,Urine Negative (Negative); PH,Urine 6.0 (5.0-8.5); Protein,Urine Negative (Negative); Specific Gravity, Urine 1.025 (1.005-1.030); Urobilinogen,Urine 0.2 EU/dl (0.2)
--- NOTE | 2025-02-09 13:15 | PC.NURSE ---
call made to lab to check on blood work and urine
[2025-02-09 13:17] LABS: Alanine Aminotransferase 41 U/L (12-78); Albumin Level 4.8 g/dl (3.5-5.0); Albumin/Globulin Ratio 1.8 (1.1-1.8); Alkaline Phosphatase 85 U/L (38-126); Anion Gap 13.8 mEq/L (5-15); Aspartate Amino Transferase 33 U/L (17-59); Bilirubin,Total 0.8 mg/dl (0.2-1.3); Blood Urea Nitrogen 16 mg/dl (9-20); Calcium 9.3 mg/dl (8.4-10.2); Carbon Dioxide 21 mmol/L (22.0-30.0); Chloride 104 mmol/L (98-107); Creatinine Clearance Estimated 152 mL/min (50-200); Creatinine,Serum 1.00 mg/dl (0.66-1.25); Estimated Glomerular Filt Rate 80 ml/min (>60); GFR (African American) 97 ML/MIN (>60); Globulin 2.7 g/dL (1.3-3.2); Glucose 139 mg/dl (74-100); Potassium 3.8 mmoL/L (3.5-5.1); Sodium 135 mmol/L (136-145); Total Protein,Serum 7.5 g/dl (6.3-8.2)
[2025-02-09 13:41] LABS: Bacteria,Urine Trace /lpf; Mucus,Urine Trace /lpf; Squamous Epithelial Cell,Urine Occasional #/hpf (0-5); WBC,Urine Occasional #/hpf (0-3)
[2025-02-09 13:49] VITALS: BP 135/88; PULSE 67; RESP 19; TEMP 36.7; O2SAT 99
[2025-02-09 14:55] LABS: Hepatitis C Ab Qual. W/ RFX NEGATIVE (Negative)
== END 2025-02-09 13:50 | disposition home or self-care (01) ==
PROVIDERS: Nurse Practitioner; Emergency Provider Student in an Organized Health Care Education/Training Program
DX: N48.89 Other specified disorders of penis (principal)
CPT/HCPCS: 80053; 81001; 85025; 86803; 87389; 87491; 87591; 87661; 99283

== ENCOUNTER 2025-02-25 14:37 | Outpatient (CLI) | payer MEDICAID, SELFPAY ==
[2025-02-25 14:57] LABS: Microscopic, Urine URINE MICROSCOPIC (MICROSCOPIC)
[2025-02-25 15:19] LABS: Bilirubin,Urine Negative (Negative); Color,Urine YELLOW (Yellow); Glucose,Urine (UA) Negative (Negative); Ketones,Urine Negative (Negative); Leukocyte Esterase,Urine Negative (Negative); PH,Urine 6.0 (5.0-8.5); Protein,Urine Negative (Negative); Specific Gravity, Urine 1.025 (1.005-1.030); Urobilinogen,Urine 0.2 EU/dl (0.2)
[2025-02-25 15:28] LABS: Bacteria,Urine Trace /lpf; Squamous Epithelial Cell,Urine Occasional #/hpf (0-5)
[2025-02-26 08:14] LABS: PSA, Free 0.44 ng/mL
== END 2025-02-25 23:59 | disposition home or self-care (01) ==
LOC: LAB 14:38
PROVIDERS: Visit Provider Urology
DX: N41.9 Inflammatory disease of prostate, unspecified (principal); M53.3 Sacrococcygeal disorders, not elsewhere classified
CPT/HCPCS: 36415; 81001; 84153; 84154; 87086